=== PATIENT | female | born 1965 | race Caucasian/White ===

== ENCOUNTER 2022-05-30 07:28 | Day surgery (SDC) | payer OTHER, MEDICAID ==
[~2022-05-30] VITALS: Ht 157.5 cm; Wt 93.0 kg
[2022-05-30] MEDS ORDERED: MEPERIDINE 100 MG INJ. 100 MG/ML VIAL ONE ×2 (10:04→10:30)
[2022-05-30] MEDS ORDERED: MIDAZOLAM HCL 5 MG/5 ML VIAL ONE ×2 (10:04→10:30)
[2022-05-30 14:56] VITALS: BP_SYST 101
== END 2022-05-30 11:45 | disposition home or self-care (01) ==
LOC: SDS 07:28 → SMU 07:30 → SDS 11:45
PROVIDERS: ATTEND Internal Medicine Gastroenterology
DX: K59.00 Constipation, unspecified (principal); K63.5 Polyp of colon; K62.1 Rectal polyp; K64.8 Other hemorrhoids; M19.90 Unspecified osteoarthritis, unspecified site; E03.9 Hypothyroidism, unspecified; Z80.0 Family history of malignant neoplasm of digestive organs; E78.00 Pure hypercholesterolemia, unspecified; F17.210 Nicotine dependence, cigarettes, uncomplicated; Z79.899 Other long term (current) drug therapy
CPT/HCPCS: 87426; 36415; 45380; 45385; 88305; 99152; 99153; G0378; J2250; J2175

== ENCOUNTER → 2023-03-11 | Emergency (ER) | payer OTHER, MEDICAID ==
[~2023-03-11] VITALS: Ht 157.5 cm; Wt 136.1 kg
[2023-03-11 18:19] VITALS: BP_SYST 98; PULSE 95; RESP 18; TEMP 98.3; O2SAT 96
[2023-03-11 18:44] VITALS: BP_SYST 98; PULSE 95; RESP 18; TEMP 98.3; O2SAT 96
== END | disposition left against medical advice (07) ==
LOC: SED 18:01
DX: S51.851A Open bite of right forearm, initial encounter (principal); Z53.21 Procedure and treatment not carried out due to patient leaving prior to being seen by health care provider; W55.01XA Bitten by cat, initial encounter; Y93.89 Activity, other specified; Y92.89 Other specified places as the place of occurrence of the external cause; Y99.8 Other external cause status
CPT/HCPCS: 99281

== ENCOUNTER 2023-09-03 07:18 | Day surgery (SDC) | payer OTHER, MEDICAID ==
[~2023-09-03] VITALS: Ht 157.5 cm; Wt 92.7 kg
[2023-09-03] MEDS: MEPERIDINE 100 MG INJ. 100 MG/ML VIAL ONE (08:20)
[2023-09-03] MEDS: MIDAZOLAM HCL 5 MG/5 ML VIAL ONE (08:20)
[2023-09-03 11:35] VITALS: O2SAT 97
[2023-09-03 15:33] VITALS: BP_SYST 106; PULSE 74; RESP 18
== END 2023-09-03 09:55 | disposition home or self-care (01) ==
LOC: SDS 07:18 → SMU 07:21 → SDS 09:55
PROVIDERS: ATTEND Internal Medicine Gastroenterology
DX: K21.9 Gastro-esophageal reflux disease without esophagitis (principal); K29.50 Unspecified chronic gastritis without bleeding; K31.7 Polyp of stomach and duodenum; K44.9 Diaphragmatic hernia without obstruction or gangrene; M19.90 Unspecified osteoarthritis, unspecified site; J44.9 Chronic obstructive pulmonary disease, unspecified; M79.7 Fibromyalgia; E78.5 Hyperlipidemia, unspecified; F17.210 Nicotine dependence, cigarettes, uncomplicated; K58.9 Irritable bowel syndrome, unspecified; Z79.899 Other long term (current) drug therapy; Z98.51 Tubal ligation status
CPT/HCPCS: 43251; 87081; 36415; 43239; 88305; 88312; 88313; 99152; G0378; J2250; J2175